=== PATIENT | male | born 1990 | race Caucasian/White ===

== ENCOUNTER 2023-01-18 21:17 | Emergency (ER) | payer SELFPAY ==
[~2023-01-18] VITALS: Ht 172.7 cm; Wt 95.5 kg
[2023-01-18 21:27] VITALS: BP 146/94
[2023-01-18] MEDS ORDERED: BACITRACIN 0.9 GM PACKET OINTMENT TP ONE (21:30)
== END 2023-01-18 22:25 | disposition home or self-care (01) ==
LOC: EMS 21:20
DX: S80.212A Abrasion, left knee, initial encounter (principal); F10.129 Alcohol abuse with intoxication, unspecified; X58.XXXA Exposure to other specified factors, initial encounter; Y93.89 Activity, other specified; Y92.89 Other specified places as the place of occurrence of the external cause; Y99.8 Other external cause status
CPT/HCPCS: 99283